=== PATIENT | female | born 1950 | race Caucasian/White ===

== ENCOUNTER → 2021-02-06 12:53 | Outpatient (CLI) | payer MEDICARE, SELFPAY | PROVIDERS: Visit Provider Physician Assistant | DX: R30.0 Dysuria (principal) | CPT/HCPCS: 87077; 87086; 87186 ==

== ENCOUNTER → 2021-03-29 16:00 | Outpatient (CLI) | payer MEDICARE, SELFPAY ==
--- NOTE | 2021-03-29 | DI.MRI.S_ITS ---
PROCEDURE: MR HEAD/BRAIN WO/W CON INDICATIONS: 70-year-old female with history of posterior fossa meningioma resection and CN 5 microvascular decompression 2014 TECHNIQUE: Noncontrast axial T1 spin echo, axial T2 fast spin echo, sagittal and axial FLAIR, coronal T2 fast spin echo, axial gradient echo, axial diffusion and ADC through the brain. After the administration of contrast, axial and coronal T1 spin echo with fat saturation through the brain. COMPARISON: Prior exam report 06/05/2019. Images not available. FINDINGS: Cerebrum, Cerebellum and Brainstem: Trace punctate susceptibility noted in the right cerebral pontine angle cistern again noted and consistent with postsurgical changes. The diffusion sequence is normal without evidence of acute infarct. No intracranial hemorrhage, mass lesion or midline shift. There is a normal cerebral and cerebellar volume present. White matter is unremarkable without evidence of edema. Basal cisterns and foramen magnum contain appropriate anatomy and vascular flow voids. No evidence of dural or leptomeningeal thickening. Ventricles: Appropriate in size and position. No hydrocephalus. Skull Base: The bony sella, pituitary gland and infundibulum are unremarkable. Clivus and craniovertebral relationships are appropriate. Visualized portions of the seventh and eighth cranial nerve complexes, cisternal components of both trigeminal nerves, and internal auditory canals are within normal limits. Scalp and Calvarium: Right retrosigmoid craniotomy noted. There is appropriate enhancement of the dural sinuses, including the right sigmoid sinus Paranasal Sinuses: Visualized sinuses are clear. Mastoids: Unremarkable as visualized. No mastoid effusion present. Orbits: Bilateral intraocular lens replacements noted. The orbits, globes and ocular muscles are otherwise unremarkable. IMPRESSION: 1. Postsurgical changes including right sided craniotomy are stable from the prior report. No evidence of recurrent or residual disease. Dictated by: Savage Davenport M.D. on 04/01/2021 at 12:00 Approved by: Savage Davenport M.D. on 04/01/2021 at 12:11
== END ==
PROVIDERS: Referring Provider Neurological Surgery; Visit Provider Neurological Surgery
DX: D32.0 Benign neoplasm of cerebral meninges (principal); Z98.890 Other specified postprocedural states
CPT/HCPCS: 70553; A9579

== ENCOUNTER → 2021-05-24 17:12 | Outpatient (CLI) | payer MEDICARE, SELFPAY ==
[2021-05-24 18:24] LABS: Add Manual Diff / Slide Review NO; Basophils Absolute Auto 0 /uL (0-100); Basophils Percent Auto 0.6 % (0-2); Eosinophils Absolute Auto 0 /uL (0-450); Eosinophils Percent Auto 0.3 % (2-4); Hematocrit 38.6 % (36-46); Hemoglobin 12.9 g/dL (12.0-16.0); Lymphocytes Absolute Auto 800 /uL (1100-4500); Lymphocytes Percent Auto 10.8 % (25-40); Mean Corpuscular HGB Conc 33.5 % (30-36); Mean Corpuscular Hemoglobin 33.7 PG (26-34); Mean Corpuscular Volume 100.5 fL (80-100); Monocytes Absolute Auto 400 /uL (0-900); Neutrophils Absolute Auto 5900 /uL (1500-7000); Neutrophils Percent Auto 82.3 % (50-75); Platelet Count 234 X10^3/uL (150-400); Red Blood Cell Count 3.84 X10^6/uL (4.0-5.2); Red Cell Distribution Width 14.2 % (11.6-14.8); White Blood Cell Count 7.2 X10^3/uL (4.5-11.0)
[2021-05-24 18:36] LABS: Alanine Aminotransferase 15 IU/L (<35); Albumin 4.3 g/dL (3.5-5.0); Albumin Globulin Ratio 1.5 (1.0-2.8); Alkaline Phosphatase 37 U/L (38-126); Aspartate Aminotransferase 30 IU/L (14-36); Bilirubin Total 0.6 mg/dL (0.2-1.3); Blood Urea Nitrogen 19 mg/dL (7-17); C-Reactive Protein Quant 0.6 mg/dL (<1.0); Calcium 9.4 mg/dL (8.4-10.2); Carbon Dioxide 31 mmol/L (22-32); Chloride 100 mmol/L (98-107); Creatine Kinase 54 U/L (30-135); Estimated Glomerular Filt Rate > 60.0 mL/min (>60); Globulin 2.8 g/dL (1.7-4.1); Glucose 99 mg/dL (80-110); HEMOLYSIS < 15 (0-50); Sodium 135 mmol/L (137-145); Total Protein 7.1 g/dL (6.3-8.2)
== END ==
PROVIDERS: Referring Provider Internal Medicine Rheumatology; Visit Provider Internal Medicine Rheumatology
DX: Z79.899 Other long term (current) drug therapy (principal); M31.7 Microscopic polyangiitis
CPT/HCPCS: 36415; 80053; 82550; 85025; 86140

== ENCOUNTER → 2022-04-07 12:11 | Outpatient (CLI) | payer MEDICARE, SELFPAY ==
[2022-04-07 12:42] LABS: Add Manual Diff / Slide Review NO; Basophils Absolute Auto 0 /uL (0-100); Basophils Percent Auto 0.7 % (0-2); Eosinophils Absolute Auto 100 /uL (0-450); Eosinophils Percent Auto 1.1 % (2-4); Hematocrit 39.6 % (36-46); Hemoglobin 13.4 g/dL (12.0-16.0); Lymphocytes Absolute Auto 700 /uL (1100-4500); Mean Corpuscular HGB Conc 33.8 % (30-36); Mean Corpuscular Hemoglobin 32.7 PG (26-34); Mean Corpuscular Volume 96.8 fL (80-100); Monocytes Absolute Auto 500 /uL (0-900); Monocytes Percent Auto 9.2 % (3-14); Neutrophils Absolute Auto 4600 /uL (1500-7000); Platelet Count 229 X10^3/uL (150-400); Red Cell Distribution Width 14.1 % (11.6-14.8); White Blood Cell Count 5.9 X10^3/uL (4.5-11.0)
[2022-04-07 12:48] LABS: Hemoglobin A1C% w Est Avg Glu 5.4 % (4.0-6.0)
[2022-04-07 12:56] LABS: Blood Urea Nitrogen 20 mg/dL (7-17); Carbon Dioxide 31 mmol/L (22-32); Chloride 100 mmol/L (98-107); Estimated Glomerular Filt Rate > 60 mL/min (>60); Glucose 114 mg/dL (80-110); HEMOLYSIS < 15 (0-50); Potassium 4.5 mmol/L (3.4-5.1); Sodium 138 mmol/L (137-145)
[2022-04-07 13:18] LABS: Appearance Urine UA CLEAR; Bilirubin Urine UA NEGATIVE (NEGATIVE); Color Urine UA YELLOW; Glucose Urine UA NEGATIVE (Negative); Ketones Urine UA NEGATIVE (NEGATIVE); Leukocyte Esterase Urine UA NEGATIVE (NEGATIVE); Nitrite Urine UA NEGATIVE (Negative); Occult Blood Urine UA 2+ (Negative); Protein Urine UA NEGATIVE (Negative); Specific Gravity Urine UA <=1.005 (1.000-1.035); Urobilinogen Urine UA 0.2 E.U./dL (0.2)
[2022-04-07 13:22] LABS: pH Urine UA 6.5 (4.5-8.0)
[2022-04-07 13:32] LABS: RBC Urine 1-5/HPF (0-5/HPF); Squamous Epithelial Cell Urine 0-1 /HPF (0-5/HPF); WBC Urine 0-1/HPF (0-5/HPF)
[2022-04-07 13:33] LABS: Bacteria Urine None Seen; Culture Indicated Urine Cult Not Indicated
== END ==
PROVIDERS: Referring Provider Orthopaedic Surgery; Visit Provider Orthopaedic Surgery
DX: Z01.818 Encounter for other preprocedural examination (principal); R73.9 Hyperglycemia, unspecified; M25.552 Pain in left hip; Z01.812 Encounter for preprocedural laboratory examination; N39.0 Urinary tract infection, site not specified
CPT/HCPCS: 36415; 80048; 81001; 83036; 85025; 93005; 93010

== ENCOUNTER → 2022-04-20 11:51 | Outpatient (CLI) | payer MEDICARE, SELFPAY ==
[2022-04-20 12:37] LABS: Add Manual Diff / Slide Review NO; Basophils Absolute Auto 0 /uL (0-100); Basophils Percent Auto 0.8 % (0-2); Eosinophils Absolute Auto 100 /uL (0-450); Hematocrit 36.3 % (36-46); Hemoglobin 12.3 g/dL (12.0-16.0); Lymphocytes Absolute Auto 800 /uL (1100-4500); Lymphocytes Percent Auto 14.6 % (25-40); Mean Corpuscular HGB Conc 33.9 % (30-36); Mean Corpuscular Hemoglobin 32.5 PG (26-34); Mean Corpuscular Volume 95.7 fL (80-100); Monocytes Absolute Auto 600 /uL (0-900); Monocytes Percent Auto 11.4 % (3-14); Neutrophils Absolute Auto 3800 /uL (1500-7000); Neutrophils Percent Auto 72.2 % (50-75); Platelet Count 207 X10^3/uL (150-400); Red Cell Distribution Width 13.2 % (11.6-14.8); White Blood Cell Count 5.3 X10^3/uL (4.5-11.0)
[2022-04-20 12:53] LABS: Erythrocyte Sedimentation Rate 32 MM/HR (0-20)
[2022-04-20 13:49] LABS: Alanine Aminotransferase 13 IU/L (<35); Albumin Globulin Ratio 1.4 (1.0-2.8); Alkaline Phosphatase 38 U/L (38-126); Aspartate Aminotransferase 23 IU/L (14-36); BUN Creatinine Ratio 32.5 (6-22); Bilirubin Total 0.5 mg/dL (0.2-1.3); Blood Urea Nitrogen 26 mg/dL (7-17); C-Reactive Protein Quant < 0.5 mg/dL (<1.0); Calcium 8.7 mg/dL (8.4-10.2); Carbon Dioxide 28 mmol/L (22-32); Chloride 104 mmol/L (98-107); Estimated Glomerular Filt Rate > 60 mL/min (>60); Globulin 2.9 g/dL (1.7-4.1); Glucose 106 mg/dL (80-110); HEMOLYSIS < 15 (0-50); Potassium 4.6 mmol/L (3.4-5.1); Sodium 139 mmol/L (137-145); Total Protein 6.9 g/dL (6.3-8.2)
== END ==
PROVIDERS: PCP Family Medicine; Referring Provider Internal Medicine Rheumatology; Visit Provider Internal Medicine Rheumatology
DX: M31.7 Microscopic polyangiitis (principal)
CPT/HCPCS: 36415; 80053; 85025; 85651; 86140

== ENCOUNTER 2022-05-30 09:18 | Day surgery (SDC) | payer MEDICARE, SELFPAY ==
[2022-05-22 08:53] VITALS: BMI 31.7
[2022-05-30] VITALS (12 sets, daily range): BP systolic 95–137; BP diastolic 34–78; PULSE 62–76; RESP 11–18; TEMP 35.1–37; O2SAT 95–100; BMI 31.7
--- NOTE | 2022-05-30 06:00 | DI.RAD.S_ITS ---
PROCEDURE: XR HIP W PEL IF DONE RT 2V INDICATIONS: TOTAL ANTERIOR HIP TECHNIQUE: 4 intraoperative fluoroscopic of the right hip acquired. COMPARISON: None. FINDINGS: Intraoperative fluoroscopic images shows right total hip arthroplasty in progress. IMPRESSION: Fluoro guidance was provided intraoperatively for right total hip arthroplasty. Dictated by: Geremias Barahona M.D. on 05/30/2022 at 16:44 Approved by: Geremias Barahona M.D. on 05/30/2022 at 16:45
[2022-05-30 09:49] LABS: COVID19 -Nasal RAPID Negative (Negative)
[2022-05-30] MEDS: LACTATED RINGERS 1,000 ML 42 ML IV ×2 (10:08→12:37)
[2022-05-30] MEDS: ACETAMINOPHEN 325 MG TABLET 975 MG PO (10:12)
[2022-05-30] MEDS: CELECOXIB 200 MG CAPSULE PO (10:13)
[2022-05-30] MEDS: VANCOMYCIN 1,000 MG/200 ML PIGGYBACK 200 MG IV (10:14)
--- NOTE | 2022-05-30 11:04 | PM.PREOP ---
Pre-operative Note COVID-19 COVID-19 status: Negative Interval Note History & Physical reviewed/Exam performed by Physician: Yes Changes to H&P: No
--- NOTE | 2022-05-30 11:04 | PM.OP.1 ---
Operative Date/Time/Diagnoses Date of procedure: 05/30/22 Time of procedure: 11:30 Pre-op diagnosis: SEVERE RIGHT HIP OA Post-op diagnosis: same Procedure & Clinicians Procedure: Right total hip arthroplasty anterior approach Same procedure as scheduled: Yes Indications: The patient has had progressively worsening right hip pain with radiographic changes consistent with arthritis. Non-operative management has failed and the patient has requested total hip replacement. The risks, benefits and alternatives to surgery were discussed with the patient prior to proceeding. Risks discussed included, but were not limited to, failure to relieve pain, leg length discrepancy, dislocation, stiffness, infection, nerve damage, deep venous thrombosis, pulmonary embolism, stroke, coma, heart attack, permanent paralysis and , as well as the potential need for eventual revision of the prosthetic. Surgeon: Yissel Hsieh [employer] Designer: Tigist Biggs Anesthesia Type: General and Spinal Operative Notes Findings: Severe right hip OA, acceptable bone, adequate stability Closure Type: primary Specimen(s): none sent Prosthetic devices, grafts, tissues, transplants, or devices: Hsieh and Nephew 50 R3, size 4 standard offset anthology, neutral poly liner, 32 x -3 Oxinium head Estimated Blood Loss (mL): 250 Blood products transfused: none Procedure in detail: The patient was brought to the operating room. Patient was carefully positioned in the supine position. Time-out was performed and antibiotics were given. Anesthesia was induced. She was positioned in the on the table in order to allow hyperextension of the hip. The right lower extremity was prepped and draped in a standard sterile fashion. An anterior right hip incision was made 1 fingerbreadth lateral to the anterior superior iliac spine and extended distally towards the greater trochanter. Dissection was carried out through skin and subcutaneous tissues. Superficial hemostasis was achieved. The fascia over the tensor fascia jaycob was defined and incised with a knife. Two Allis clamps were used to grasp the fascia. Tensor fascia jaycob was retracted laterally. A gelpi retractor was placed. Dissection was carried out down along the neck. The circumflex vessels were carefully identified and cauterized with the Aqua Mantis. There was good visualization of the femoral neck. A Cobra was placed superior to the neck and the gluteus fibers were carefully stripped from that superior aspect of the capsule. A 2nd retractor was placed along the inferior aspect of the neck. The rectus insertion along the capsule was partially released. A 3rd retractor that was then gently placed over the rim of the acetabulum under the rectus. Capsule was carefully incised and released from the intertrochanteric line circumferentially superior to the mid sagittal line and inferiorly to the mid sagittal line until the lesser trochanter was palpable. A tag stitch was placed both in the superior and inferior limb of the capsular insertion. Along the acetabulum capsule was also released up to the mid sagittal 12:00 position. A portion of the labrum was resected. A saw was used to perform an osteotomy at the level of the intertrochanteric line and the junction of the superior femoral neck leaving approximately 1 finger breath of residual inferior neck above the lesser trochanter. A 2nd cut was made along the femoral neck at the base of the head and a napkin ring of neck was removed. Corkscrew was placed in the femoral head and the head was removed without difficulty. Retractors were then repositioned around the acetabulum. Residual labrum was resected and additional osteophytes were removed. A reamer that was 4 mm below the templated size was placed by hand in the acetabulum and it was reamed to centralize the acetabulum. It was then reamed up to 2 under the templated size and fluoroscopy was brought in to confirm the position of the reaming and depth of reaming. I reamed 1 under the anticipated size. A trial cup was placed and noted that it was appropriately sized and fluoroscopy confirmed position and depth. The component was open and inserted without difficulty fluoroscopic imaging was used to confirm that the cup had been adequately seated and was well positioned. It was further stabilized with a single screw. Neutral poly liner was placed. The cup was tested and noted to be stable. Attention was then directed to the femur. The femur was gently hyperextended additional capsular release was performed as needed in order to allow adequate visualization of the proximal femur with elevation of the femur. Patient was placed in a hyperextended slightly adducted position with maximum external rotation. Box osteotome was used to check for any residual neck as well as sclerotic bone along the trochanter. Zeigler pepper was placed in the femur. Additional broaching was performed. Canal finder was used to determine the alignment of the canal and position. Size 1 broach was placed. The canal was then appropriately broached up to the templated size as long as there was adequate stability of the broach and serial advancement of the broach without excessive impingement. Specific attention was directed at avoiding varus attempting to direct the distal aspect of the broach more anteriorly and avoiding excessive anteversion. Trial reduction showed acceptable range of motion, good stability, no posterior impingement, confucianist of leg length and appropriate lateral shuck. I also hyperflexed the hip and checked that there was no impingement anteriorly and there was good stability with flexion, adduction and internal rotation. Marcaine and Exparel were injected. The stem was placed without difficulty. Repeat trial reduction and x-ray showed acceptable overall position, length, and no evidence of the femoral fracture. Final head was placed. Wound was meticulously irrigated with normal saline. The hip was reduced and additional Exparel and Marcaine were injected. The capsule was closed with interrupted nonabsorbable sutures. The fascia of the tensor was closed with interrupted and running Vicryl. No drain was placed. Any tensor fascia jaycob muscle that appeared to be contused or injured which was a minimal amount was carefully resected. Capsule around the tensor was injected with Exparel and Marcaine. The skin was closed with barbed stitches for the subcutaneous tissue and skin. We also used surgical glue. The wound was dressed sterilely. Brief Betadine soak was also used and was meticulously irrigated with normal saline. Patient was transferred to recovery room in satisfactory condition. Complications: none Post-operative Condition: stable Disposition: Acute Care Plan for aftercare: The patient will be maintained on a standard total hip replacement protocol with weight bearing as tolerated and anterior hip precautions. The patient will receive Aspirin and sequential compression devices for DVT prophylaxis. The patient will be discharged home when safe for the home environment.
[2022-05-30] MEDS: CEFAZOLIN 2 GM/100 ML PREMIX 100 ML IV ×2 (11:45→20:20)
[2022-05-30] MEDS: TRANEXAMIC ACID 1,000 MG VIAL 1000 MG INJ ×2 (12:10→14:13)
--- NOTE | 2022-05-30 12:32 | SUR.OPER ---
Patient supine on padded Warren table, one arm on padded arm board at <90, other arm padded and secured with tape across patient's chest, both legs secured in padded traction boots and positioned per surgeon, padded post at patient's groin, pressure points checked and padded.
[2022-05-30] MEDS: SODIUM CHLORIDE IRRIG SOLUTION 250 ML, POVIDONE-IODINE SPONGE STICKS 1 APPLIC IRR (13:52)
[2022-05-30] MEDS: BUPIVACAINE LIPOSOME 266 MG/20 ML VIAL INJ (14:04)
[2022-05-30] MEDS: BUPIVACAINE 0.25% (PF) VIAL 60 ML INJ (14:04)
[2022-05-30] MEDS: EPINEPHrine 1 MG/ML 0.3 MG IM (14:04)
--- NOTE | 2022-05-30 14:30 | DI.RAD.S_ITS ---
PROCEDURE: XR HIP W PEL IF DONE RT 2V INDICATIONS: RIGHT TOTAL HIP TECHNIQUE: AP pelvis and lateral view of the right hip acquired. COMPARISON: [facility], [place], XR HIP W PEL IF DONE RT 2V, 05/30/2022, 13:10. FINDINGS: Bones: Patient is status post right hip arthroplasty, with hardware components in expected positions. The hip joint appears congruent. The visualized bony structures appear intact. Soft tissues: Overlying postoperative changes are noted. No suspicious soft tissue densities. IMPRESSION: Expected appearance status post right hip arthroplasty. Dictated by: Sofiya Mendez M.D. on 05/30/2022 at 15:11 Approved by: Sofiya Mendez M.D. on 05/30/2022 at 15:11
--- NOTE | 2022-05-30 14:45 | SUR.PHASEI ---
Report called to Laura Basurto
--- NOTE | 2022-05-30 15:08 | SUR.PHASEI ---
Patient transferred to the floor with her belongings bag and brown personal bag. VS stable. Report given to Laura Basurto Right hip dressing CDI. IV saline locked. Patient moving bilateral feet independently.
[2022-05-30] MEDS: LACTATED RINGERS 1,000 ML 125 ML IV (15:50)
[2022-05-30] MEDS: SODIUM CHLORIDE 0.9% FLUSH 10 ML IV ×2 (15:52→20:22)
[2022-05-30] MEDS: OXYCODONE IR 5 MG TABLET PO (16:16)
[2022-05-30] MEDS: IBUPROFEN 600 MG TABLET PO (16:16)
--- NOTE | 2022-05-30 17:18 | PT.IIE ---
Current Diagnoses Unilateral primary osteoarthritis, right hip (05/30/22) Surgery Performed Operation Date: 05/30/22 11:15 Actual Procedures p Total Hip Arthroplasty/Anterior Approach(Right) - Yissel Hsieh MD Surgical History (Last Updated 05/22/22 @ 09:29 by Emili Burris, RN) History of 2 sections History of biopsy (04/2022) History of hysterectomy History of lumpectomy of right breast (2011) Hx of bilateral cataract extraction Hx of craniotomy (~2015) Hx of LASIK Hx of tonsillectomy Medical History (Last Updated 05/22/22 @ 09:29 by Emili Burris, ELIA) Breast cancer, right (2011) Depression Diverticulosis History of tumor HTN (hypertension) Melanoma Meningioma (~2015) Microscopic polyangiitis (2008) No active medical problems Thin skin Vasculitis Physical Therapy Inpatient Evaluation/Re-Eval M1 PT/OT-IP Prior Functional Status Start: 05/30/22 17:36 Freq: NEEDED Status: Active Protocol: Document 05/30/22 17:18 DLKang (Rec: 05/30/22 17:53 DL [id number]) Medical Review Prior Functional Status Medical History Reviewed Yes Diet/Fluid Consistency Regular Communication WFL, glasses Mobility and Gait Independent without device Activities of Daily Living and IADL's Independent Social History Household Members spouse Living Arrangements Apartment/Condo Number of Floors (Floors) Two Floors Number of Stairs To Enter/Railing? 20 steps up to bedroom with rail, 3 steps to enter house without rails (holds wall) Home Environment Standard Height Toilet Home Equipment Front Wheel Walker,Bedside Commode Additional Social History Comment she plans to stay on the first floor of her home with bedside commode. They also have walking sticks. M2 PT-IP Current Condition Start: 05/30/22 17:36 Freq: NEEDED Status: Active Protocol: Document 05/30/22 17:18 DLM (Rec: 05/30/22 17:53 DL [id number]) Physical Therapy Current Condition Current Condition Evaluation Date 05/30/22 Treatment Diagnosis right anterior WILBERT, impaired mobility/gait Onset Date 05/30/22 M3 PT-IP Subjective Start: 05/30/22 17:36 Freq: NEEDED Status: Active Protocol: Document 05/30/22 17:18 DLM (Rec: 05/30/22 17:53 [facility] [id number]) Subjective Physical Therapy Visit Type Type Initial Evaluation Visit Start Time 16:18 Visit Stop Time 17:18 Total Visit Minutes 60 Number of CRANBERRY GROWER Visits 0 Physical Therapy Visit Comments Patient Comments She feels like she needs to move a lot to manage her pain. She wants to go home today. She has out-pt PT scheduled post-op. Patient Goals Discharge home with Spouse to help M4 PT-IP Mobility and Gait Start: 05/30/22 17:36 Freq: NEEDED Status: Active Protocol: Document 05/30/22 17:18 DL (Rec: 05/30/22 17:53 [facility] [id number]) PT-Bed Mobility Assessment Rolling Type of Rolling Bilateral Level of Assist Independent Supine to Sit Supine to Sit Independent Sit to Supine Sit to Supine Independent Scooting Scooting to Edge of Bed Independent Scooting Up and Down in Bed Independent PT-Transfer Assessment Sit to and From Stand Sit to and from Stand Standby Assistance,Use of Upper Extremities Equipment Transfer Assistive Device Gait Belt,Front Wheeled Walker Transfers Transfer Destination Bed,Chair,Bedside Commode Transfer Technique Stand Step Pivot Transfer Ability Level of Assist Standby Assistance,Use of Upper Extremities Comments Mobility Comments She needs verbal cues and education during sit -stand to push up with UE's and reach back with UE's. She needs reminders to keep the FWW with her all the time and not leave it behind. Pt able to urinate in bedside commode this visit (nursing notified). She sat up in the recliner. She requested back to bed to manage her pain. After mobility pt became nauseated and clammy. Seated BP 95/44. Her nurse was notified. Gait Assessment Gait Gait Assistance Required: Standby Assistance Distance (Feet) 150 Able to Maintain Weight Bearing Status Yes During Gait Assistive Devices Assistive Device Gait Belt,Front Wheeled Walker Gait Deviations General Gait Pattern Antalgic,Decreased Stride Length Factors Limiting Gait Function Factors Limiting Gait Function Decreased Activity Tolerance, Decreased Strength,Limited Range of Motion,Pain,Poor Balance Comments Gait Comments Educated pt in use of FWW and sequencing of gait. No reports of nausea or light-headedness during gait. Stair Climbing Assessment Evaluation Level of Assist On Stairs Minimal Assistance,1 Person Assistance Devices Stair Climbing Assistive Devices Right Railing Technique/Endurance Stair Climbing Direction Ascend and Descend Stair Climbing Technique Step to Step Number of Steps Climbed 1 Query Text: Stair Climbing Set # Repetitions (reps) 2 Comments Stair Climbing Comments used end of bed to mimic her wall at home and then handheld assist on the opposite side, her reports he can help her at home since she has no rails on the steps into the house PT-Balance Assessment Sitting Balance and Reactions Static Sitting Balance Ability Normal Dynamic Sitting Balance Ability Normal Standing Balance and Reactions Static Standing Balance Ability Good Dynamic Standing Balance Ability Good Device Used FWW M5 PT-IP Objective Assessments Start: 05/30/22 17:36 Freq: NEEDED Status: Active Protocol: Document 05/30/22 17:18 [facility] (Rec: 05/30/22 17:53 [facility] [id number]) Orientation Orientation/Cognition Level of Alertness Alert Orientation Name,Age,Birthday,Month,Date, Year,Day of Week,Place, Situation Language Function Ability No Deficits Noted Safety Awareness Understands Safety Issues Memory Description No Deficits Noted Gross Range of Motion Upper Extremity ROM Assessment Within Functional Limits Lower Extremity ROM Assessment Right Impaired Impairments anterior hip precautions and hip pain limit ROM Strength Upper Extremity Strength Assessment Within Functional Limits Lower Extremity Strength Assessment Right Impaired Hip hip flex 3-/5 Knee knee 4-/5 Ankle DF 5/5 Comments Strength Comments pain right hip limits functional strength Coordination Assessment Gross Coordination Gross Coordination WNL Sensation Assessment Sensation Gross Sensation WNL Muscle Tone Muscle Tone WNL Yes M6 PT-IP Treatment Start: 05/30/22 17:36 Freq: NEEDED Status: Active Protocol: Document 05/30/22 17:18 DL (Rec: 05/30/22 17:53 [facility] [id number]) Physical Therapy Treatment Exercises Exercises Ankle Pumps,Gluteal Sets,Quad Sets,Heel Slides Education Education Provided Precautions,Weight Bearing Status,Post-Op Packet,Safety Other Treatments Other Treatment Performed educated pt and her spouse in post-op precautions for WILBERT, reviewed written post-op packet, discussed home safety issues and answered their questions M7 PT-IP Assessment and Plan Start: 05/30/22 17:36 Freq: NEEDED Status: Active Protocol: Document 05/30/22 17:18 DL (Rec: 05/30/22 17:53 [facility] [id number]) PT Summary Assessment and Plan Potential Rehabilitation Potential Good Status of Condition at Evaluation Evolving Summary Impairments Pain,ROM,Strength,Balance,Bed Mobility,Transfers,Gait, Activity Tolerance Assessment Summary Devi is alert and eager to go home after surgery. She is moving frequently and changing position. She reports the pain makes her feel like she needs to move often. She rates her pain as 3/10 in right hip area. She tolerated gait with the FWW well in the lopez. She was able to go up and down steps with min assist. She developed nausea after activity and sat in the recliner with feet elevated to manage her symptoms. Noted low BP at that time. With questioning pt admits to also feeling cold/clammy. Pt returned to supine to rest. Her nurse was notified of her low BP. Her mobility is safe for discharge home today but concerned her low BP needs further monitoring. Defer further decisions to the medical team. Goals Bed Mobility Goal Independent Transfer Goal Independent,Front Wheeled Walker Gait Goal Independent,Front Wheel Walker Gait Distance 150 feet Other Goals Min assist up/down 3 steps with min assist Days to Meet Goals 1 Frequency of Treatment Frequency Of Treatment Twice a Day Treatment Plan Physical Therapy Treatment Plan Bed Mobility Training,Transfer Training,Gait Training, Therapeutic Exercise,Balance Retraining,Post Op Education, Discharge Planning,Hot or Cold Pack Other Recommendations and Next Treatment her mobility/gait is safe to Focus discharge home Precautions Anterior Hip Precautions No Hip Extension,No Hip External Rotation Weight Bearing Status Weight Bearing Status Weight Bear as Tolerated Recommendations To Nursing Amount of Assist Needed Standby Assistance Discharge Recommendations PT Discharge Recommendations Home with Assistance, Outpatient PT Other Discharge Recommendations she has a supportive spouse, she has out-pt PT scheduled Transportation Needs at Discharge Private Vehicle
[2022-05-30] MEDS: ACETAMINOPHEN 325 MG TABLET 650 MG PO (17:58)
[2022-05-30] MEDS: ASPIRIN EC 81 MG TABLET PO (20:22)
[2022-05-30] MEDS: ATORVASTATIN 20 MG TABLET 10 MG PO (20:22)
[2022-05-30] MEDS: DOCUSATE 100 MG CAPSULE PO (20:22)
[2022-05-30] MEDS: ZOLPIDEM 5 MG TABLET 10 MG PO (20:22)
[2022-05-31] MEDS: ACETAMINOPHEN 325 MG TABLET 650 MG PO ×2 (00:21→06:15)
[2022-05-31] MEDS: IBUPROFEN 400 MG TABLET PO ×3 (00:22→11:05)
[2022-05-31] MEDS: LACTATED RINGERS 1,000 ML 125 ML IV (00:23)
[2022-05-31 00:46] VITALS: BP 123/52; PULSE 64; RESP 18; TEMP 36.5; O2SAT 98
[2022-05-31] MEDS: CEFAZOLIN 2 GM/100 ML PREMIX 100 ML IV (04:12)
[2022-05-31 04:14] VITALS: BP 111/51; PULSE 67; RESP 18; TEMP 36.6; O2SAT 98
[2022-05-31 06:30] LABS: Hematocrit 31.9 % (36-46); Hemoglobin 10.7 g/dL (12.0-16.0)
[2022-05-31 07:30] VITALS: BP 148/53; PULSE 72; RESP 16; TEMP 36.9; O2SAT 99
[2022-05-31 08:17] VITALS: BP 148/53
[2022-05-31] MEDS: ASPIRIN EC 81 MG TABLET PO (08:17)
[2022-05-31] MEDS: lisinopriL 5 MG TABLET PO (08:17)
[2022-05-31 08:18] VITALS: BP 148/53
[2022-05-31] MEDS: VENLAFAXINE ER 75 MG CAP PO (08:18)
[2022-05-31] MEDS: DOCUSATE 100 MG CAPSULE PO (08:18)
[2022-05-31] MEDS: METOPROLOL ER 50 MG TABLET PO (08:18)
[2022-05-31] MEDS: SODIUM CHLORIDE 0.9% FLUSH 10 ML IV (08:20)
--- NOTE | 2022-05-31 08:21 | P.DS_ITS ---
History of Present Illness History of Present Illness Date Patient Seen: 05/31/22 Time Patient Seen: 08:22 Chief complaint: R total Hip Arthroplasty/Anterior approach *OPB* Narrative: Patient is complaining of [id number] right hip pain. She has not been taking oxycodone due to postop nausea and vomiting, which is resolving. She denies any lightheadedness or dizziness. Overall she is feeling well, and would like to be discharged home today. Discharge Providers Provider Discharge Date: 05/31/22 Primary care physician: Refugio Baker MD Consults: 05/30/22 06:00 Consult to Anesthesiology Routine Comment: Consulting Provider: Anesthesiologist Reason for consultation: Regional block for post operative pain control 05/30/22 14:53 Consult to Discharge Planning Routine Comment: Consult to Physical Therapy Evaluate & Treat Comment: Physician Instructions: post op WILBERT protocol Consult to Respiratory Therapy Evaluate & Treat Comment: Physician Instructions: Evaluate and treat Discharge provider: Simona Lo PA-C Summary Hospital Course Discharge Diagnosis: Severe right hip OA -mild postop hemorrhagic anemia, asymptomatic Hospital Course: Operative Date/Time/Diagnoses Date of procedure: 05/30/22 Time of procedure: 11:30 Procedure & Clinicians Procedure: Right total hip arthroplasty anterior approach Same procedure as scheduled: Yes Indications: The patient has had progressively worsening right hip pain with radiographic changes consistent with arthritis. Non-operative management has failed and the patient has requested total hip replacement. The risks, benefits and alternatives to surgery were discussed with the patient prior to proceeding. Risks discussed included, but were not limited to, failure to relieve pain, leg length discrepancy, dislocation, stiffness, infection, nerve damage, deep venous thrombosis, pulmonary embolism, stroke, coma, heart attack, permanent paralysis and , as well as the potential need for eventual revision of the prosthetic. Surgeon: Yissel Hsieh Game Room Attendant: Tigist Biggs Anesthesia Type: General and Spinal Operative Notes Findings: Severe right hip OA, acceptable bone, adequate stability Closure Type: primary Specimen(s): none sent Prosthetic devices, grafts, tissues, transplants, or devices: Hsieh and Nephew 50 R3, size 4 standard offset anthology, neutral poly liner, 32 x -3 Oxinium head Estimated Blood Loss (mL): 250 Blood products transfused: none Status at Discharge Cognitive/behavioral status at discharge: oriented Functional status at discharge: uses cane/walker Overall status at discharge: patient is progressing back to baseline Exam Vital Signs (past 8 hours): - 05/31/22 00:46 05/31/22 04:14 05/31/22 08:17 Temperature 97.7 F 97.8 F Pulse Rate 64 67 Respiratory Rate 18 18 Blood Pressure 123/52 L 111/51 L 148/53 H Pulse Oximetry 98 98 Oxygen Flow Rate 0 0 05/31/22 08:18 Temperature Pulse Rate Respiratory Rate Blood Pressure 148/53 H Pulse Oximetry Oxygen Flow Rate Oxygen Delivery Method Room Air Oxygen Flow Rate 0 Narrative Exam Narrative: Pleasant 71-year-old female, resting comfortably in her chair, no acute distress. Bilateral lower extremity: Motor functions are grossly intact, sensation is grossly intact to light touch, calves are soft and nontender palpation. Objective Labs Result Diagrams: 05/31/22 06:01 Labs: Laboratory Results - last 24 hr 05/30/22 05/31/22 09:16 06:01 Hgb 10.7 L Hct 31.9 L SARS-CoV-2 (PCR) Negative [facility] Medical History Breast cancer, right (2011) Depression Diverticulosis History of tumor HTN (hypertension) Melanoma Meningioma (~2015) Microscopic polyangiitis (2008) No active medical problems Thin skin Vasculitis Surgical History History of 2 sections History of biopsy (04/2022) History of hysterectomy History of lumpectomy of right breast (2011) Hx of bilateral cataract extraction Hx of craniotomy (~2015) Hx of LASIK Hx of tonsillectomy Social History household members: spouse Smoking Status: Former smoker alcohol intake: current Discharge Assessment & Plan Assessment and Plan Assessment: -stable status post right total hip arthroplasty via the anterior approach -mild postoperative hemorrhagic anemia, asymptomatic -postop nausea and vomiting, resolved Plan of Treatment: -mobilize with PT. Weightbearing as tolerated with front wheel walker. Maintain anterior hip precautions x6 weeks -continue with multimodal pain management. We will try tramadol as needed for moderate to severe pain. -aspirin 81 mg b.i.d. x6 weeks for DVT prophylaxis -DC home today once cleared by PT Discharge Plan Discharge Plan Patient Disposition: Home Discharge orders & Medications Discharge Orders: Discharge (Order); Ordered 05/31/22 Ordered By: Simona Lo Prescriptions: New acetaminophen 500 mg capsule 500 mg PO Q4H MDD Max 3000 mg per day PRN (Reason: fever or pain) Qty: 90 0RF aspirin 81 mg Tablet,Delayed Release (Dr/Ec) 81 mg PO BID 42 Days Qty: 84 0RF Rx Instructions: Prevent blood clots docusate sodium 100 mg Capsule 100 mg PO BID PRN (Reason: Constipation from narcotic pain meds) Qty: 14 0RF ibuprofen 400 mg Tablet 400 mg PO Q6HR MDD Max 2400 mg per day PRN (Reason: Pain/inflammation) Qty: 90 0RF tramadol 50 mg Tablet 50 mg PO QID PRN (Reason: Pain, Moderate (4-6)) Qty: 20 0RF Continued lisinopril 5 mg tablet 5 mg PO DAILY zolpidem [Ambien] 10 mg tablet 10 mg PO BEDTIME venlafaxine [Effexor XR] 75 mg capsule,extended release 24hr 75 mg PO DAILY azathioprine 100 mg tablet 50 mg PO DAILY nitrofurantoin macrocrystal [Macrodantin] 50 mg Capsule 50 mg PO Q OTHER DAY Rx Instructions: must administer with a meal/food metoprolol succinate 50 mg Capsule,Sprinkle,Er 24hr 50 mg PO DAILY atorvastatin 10 mg Tablet 10 mg PO Q OTHER DAY Discontinued ibuprofen 600 mg Tablet 600 mg PO DAILY PRN (Reason: Pain) Follow up/Referrals: Refugio Baker MD [Primary Care Provider] - Yissel Hsieh MD [Physician] - As previously scheduled (Follow up w/ Adolph Harmon PA-C, on 06/14/2022 @ 2:00 pm at [facility] office in [place] .) Diet/Activity/Treatments Diet: Diet as Tolerated Activity: WBAT to RLE. Anterior hip precautions. Cold/Heat Therapy: Ice to hip as needed for pain. Other treatments: Medications: -Aspirin 81mg twice daily x6 weeks to prevent blood clots. -OTC Tylenol 500 mg 1 tablet every 4 hours as needed for pain/fever. Max 6 tablets per day. -Ibuprofen 400 mg 1 tablet every 4 hours as needed for pain/inflammation. Max 2,400 mg per day. -Tramadol 50 mg take 1-2 tablets every 4 hours as needed for moderate-severe pain (narcotic pain medication). -As needed medications: -Ducolax and /or MiraLax as needed for constipation from narcotic pain medications. -Pepcid AC as needed for stomach upset (usually from aspirin or ibuprofen). Dressing/Wound care: -Keep Aquacell dressing in place until postoperative follow-up office visit. -Keep Jerome dressing in place until postoperative follow-up office visit. The Jerome battery/pump should last for 7 days from surgery. Once the pump stops, please cut off hose at base of dressing and cover with a bandaid/part of a dressing from Jerome package. The monitor can be thrown away and recycle the batteries. Leave the remaining dressing in place. -Jerome info: The Jerome dressing provides suction known as negative pressure wound therapy, which draws out excess fluid from the wound and protects the incision. It also helps to prevent bacteria from entering the wound or incision. -Okay to shower. Keep wound out of direct water stream. No soaking or submerging until all the scabs fall off (approximately 6 weeks). -No lotions, ointments, or scar creams directly to the incision until the wound is healed (4-6 weeks), -Please call the office if dressing becomes wet, soiled, or saturated. Activities: -Maintain anterior hip precautions x6 weeks. -Weight-bearing as tolerated. Use front wheeled walker, and progress to cane when safe. -Continue with home exercises as directed by your physical therapist. -Elevate ?toes above the nose if you have significant swelling in your lower l eg. (A wedge pillow is easiest.) -Ice your incision as needed for pain/inflammation/swelling. Protect your skin with a folded pillowcase. Follow-up: -Follow-up with your surgeon or PA in the office in 10-14 days after surgery. -Follow-up with your surgeon 6 weeks postoperatively. Call the office if you have chest pain, shortness of breath, significant swelling that will not resolve with elevating, fever over 101?, significantly worsening pain, or are concerned you might need to go to the Emergency Room. [facility]: [phone] Skin/Wound/Dressing Care Report to your healthcare provider any signs of infection, such as:: chills, fever, night sweats, unusual drainage and unusual redness Dressing: May shower. Leave Aquacel dressing in place until follow up appointment. No bathing or otherwise soaking incision. Visit Report/Discharge Packet Instructions: DI for Hip Replacement Stand Alone Forms: Surgery Discharge Discharge Data Primary Care Provider: Refugio Baker Attending Provider: Yissel Hsieh VTE Deep Vein Thrombosis/Pulmonary Embolism Present on Admission: No
--- NOTE | 2022-05-31 09:38 | PT.IPTN ---
Current Diagnoses Unilateral primary osteoarthritis, right hip (05/30/22) Surgery Performed Operation Date: 05/30/22 11:15 Actual Procedures p Total Hip Arthroplasty/Anterior Approach(Right) - Yissel Hsieh MD Physical Therapy Treatment Note M2 PT-IP Current Condition Start: 05/30/22 17:36 Freq: NEEDED Status: Active Protocol: Document 05/30/22 17:18 DLM (Rec: 05/30/22 17:53 DLM [id number]) Physical Therapy Current Condition Current Condition Evaluation Date 05/30/22 Treatment Diagnosis right anterior WILBERT, impaired mobility/gait Onset Date 05/30/22 M3 PT-IP Subjective Start: 05/30/22 17:36 Freq: NEEDED Status: Active Protocol: Document 05/31/22 09:03 KS (Rec: 05/31/22 11:06 KS [id number]) Subjective Physical Therapy Visit Type Type Treatment Note Visit Start Time 09:03 Visit Stop Time 09:38 Total Visit Minutes 35 Number of MILITARY ANALYST Visits 1 Physical Therapy Visit Comments Patient Comments Eager to return home Patient Goals Discharge home with Spouse to help M4 PT-IP Mobility and Gait Start: 05/30/22 17:36 Freq: NEEDED Status: Active Protocol: Document 05/31/22 09:03 KS (Rec: 05/31/22 11:06 KS [id number]) PT-Bed Mobility Assessment Rolling Type of Rolling Bilateral Level of Assist Independent Supine to Sit Supine to Sit Independent Sit to Supine Sit to Supine Independent Scooting Scooting to Edge of Bed Independent Scooting Up and Down in Bed Independent PT-Transfer Assessment Sit to and From Stand Sit to and from Stand Standby Assistance,Use of Upper Extremities Equipment Transfer Assistive Device Gait Belt,Front Wheeled Walker Transfers Transfer Destination Bed,Toilet Transfer Technique Pt ambulated w/ FWW Transfer Ability Level of Assist Standby Assistance,Use of Upper Extremities Comments Mobility Comments Pt in bed upon arrival and eager to return home. Offers that she has been up several times this AM w/o dizziness as compared to yesterday. BP was stable w/ positional changes and pt w/o symptoms. Pt able to perform bed mobility independently and transferred w/ FWW SBA. She ambulated ~100 ft SBA and used bathroom independenetly. Reveiwed precautions and exercise. PT has OPPT set up to begin next week. Gait Assessment Gait Gait Assistance Required: Standby Assistance Distance (Feet) 100 Able to Maintain Weight Bearing Status Yes During Gait Assistive Devices Assistive Device Gait Belt,Front Wheeled Walker Gait Deviations General Gait Pattern Antalgic,Decreased Stride Length Factors Limiting Gait Function Factors Limiting Gait Function Decreased Activity Tolerance, Decreased Strength,Limited Range of Motion,Pain,Poor Balance Comments Gait Comments Educated pt in use of FWW and sequencing of gait. No reports of nausea or light-headedness during gait. Min reminders to use FWW at all times. Stair Climbing Assessment Comments Stair Climbing Comments Did not re-assess. Pt feels comfortable to complete at home. PT-Balance Assessment Sitting Balance and Reactions Static Sitting Balance Ability Normal Dynamic Sitting Balance Ability Normal Standing Balance and Reactions Static Standing Balance Ability Good Dynamic Standing Balance Ability Good Device Used FWW M5 PT-IP Objective Assessments Start: 05/30/22 17:36 Freq: NEEDED Status: Active Protocol: Document 05/30/22 17:18 DL (Rec: 05/30/22 17:53 [facility] [id number]) Orientation Orientation/Cognition Level of Alertness Alert Orientation Name,Age,Birthday,Month,Date, Year,Day of Week,Place, Situation Language Function Ability No Deficits Noted Safety Awareness Understands Safety Issues Memory Description No Deficits Noted Gross Range of Motion Upper Extremity ROM Assessment Within Functional Limits Lower Extremity ROM Assessment Right Impaired Impairments anterior hip precautions and hip pain limit ROM Strength Upper Extremity Strength Assessment Within Functional Limits Lower Extremity Strength Assessment Right Impaired Hip hip flex 3-/5 Knee knee 4-/5 Ankle DF 5/5 Comments Strength Comments pain right hip limits functional strength Coordination Assessment Gross Coordination Gross Coordination WNL Sensation Assessment Sensation Gross Sensation WNL Muscle Tone Muscle Tone WNL Yes M6 PT-IP Treatment Start: 05/30/22 17:36 Freq: NEEDED Status: Active Protocol: Document 05/31/22 09:03 KS (Rec: 05/31/22 11:06 RI [id number]) Physical Therapy Treatment Exercises Exercises Ankle Pumps,Gluteal Sets,Quad Sets,Heel Slides Education Education Provided Precautions,Weight Bearing Status,Post-Op Packet,Safety M7 PT-IP Assessment and Plan Start: 05/30/22 17:36 Freq: NEEDED Status: Active Protocol: Document 05/31/22 09:03 KS (Rec: 05/31/22 11:06 RI [id number]) PT Summary Assessment and Plan Potential Rehabilitation Potential Good Summary Impairments Pain,ROM,Strength,Balance,Bed Mobility,Transfers,Gait, Activity Tolerance Progress Towards Goals Progressing Toward Goals Assessment Summary Pt showing good improvements w / mobility and feels ready to return home. She was able to perform bed mobility independently and transfer and ambulate w/ FWW SBA. Confirms will be able to assist as needed and she feels capable to complete 3 steps leading into home. Good awareness and adherence to hip precautions and has FWW and BSC at home. She will benefit from OPPT to improve strength and stability. Goals Bed Mobility Goal Independent Transfer Goal Independent,Front Wheeled Walker Gait Goal Independent,Front Wheel Walker Gait Distance 150 feet Other Goals Min assist up/down 3 steps with min assist Days to Meet Goals 1 Frequency of Treatment Frequency Of Treatment Twice a Day Treatment Plan Physical Therapy Treatment Plan Bed Mobility Training,Transfer Training,Gait Training, Therapeutic Exercise,Balance Retraining,Post Op Education, Discharge Planning,Hot or Cold Pack Other Recommendations and Next Treatment her mobility/gait is safe to Focus discharge home Precautions Anterior Hip Precautions No Hip Extension,No Hip External Rotation Weight Bearing Status Weight Bearing Status Weight Bear as Tolerated Recommendations To Nursing Amount of Assist Needed Standby Assistance Discharge Recommendations PT Discharge Recommendations Home with Assistance, Outpatient PT Other Discharge Recommendations she has a supportive spouse, she has out-pt PT scheduled Transportation Needs at Discharge Private Vehicle
[2022-05-31] MEDS: TRAMADOL 50 MG TABLET PO (09:42)
--- NOTE | 2022-05-31 11:38 | PC.NURSE ---
Pt is dressed and ready for discharge home with Spouse. IV has been removed. Went over d/c instructions with Pt and Spouse-discussed d/c meds, time of last dose, reviewed stroke education, reminded Pt to drink plenty of fluids to prevent constipation or dehydration, reviewed dosing limits for acetaminophen and ibuprofen. Discussed s/s of infection and follow up appointment. Pt and Spouse denied further questions and Pt was taken out via w/c by [employer] to POV with Spouse and all belongings.
== END 2022-05-31 11:44 | disposition home or self-care (01) ==
LOC: OR 09:19 → AC 09:19
PROVIDERS: PCP Family Medicine; Referring Provider Orthopaedic Surgery; Visit Provider Orthopaedic Surgery
PROC: (CPT 27130; principal; 2022-05-30 11:15)
DX: M16.11 Unilateral primary osteoarthritis, right hip (principal); I10 Essential (primary) hypertension
CPT/HCPCS: 27130; 36415; 73502; 76000; 85014; 85018; 87635; 97116; 97162; 97530; C1776; C9803; C9290; J0171; J0690; J2250; J3010; J3490

== ENCOUNTER → 2023-01-06 11:46 | Outpatient (CLI) | payer MEDICARE, SELFPAY ==
[2022-05-30 15:45] VITALS: BMI 31.7
--- NOTE | 2023-01-06 11:51 | DI.MRI.S_ITS ---
PROCEDURE: MR LUMBAR SPINE WO CON INDICATIONS: Spondylosis without myelopathy or radiculopathy TECHNIQUE: Noncontrast sagittal T1 spin echo and T2 fast echo, sagittal STIR, and T2 fast spin echo through the lumbar spine. In cases with scoliosis, additional coronal T2 fast spin echo may be performed. COMPARISON: [facility] Outside Film, MR, MR LUMBAR SPINE WITHOUT CONTRAST, 07/14/2021, 18:43. FINDINGS: Image quality: Excellent. Alignment and Curvature: No plain films are available for comparison, for numbering purposes. Thus, for the purposes of this examination, 5 lumbar type vertebral bodies will be presumed, as denoted on the montage panel. This should be confirmed and correlated with plain films, prior to any lumbar spinal intervention. 6 mm of anterolisthesis of L4 on L5. Bone Marrow: Marrow is of normal overall signal. No acute vertebral body compression fractures. Mild reactive signal throughout the endplates of the lumbar and lower thoracic spine. Spinal Cord: Conus medullaris terminates at the mid L2 level. Visualized cord demonstrates normal signal and size. Paraspinous Soft Tissues: No paravertebral masses. There is decreased, mild right greater than left hydronephrosis. T12-L1: Mild disc desiccation. No significant canal, or foraminal stenosis. No significant change. L1-L2: Mild disc desiccation. No significant canal, or foraminal stenosis. No significant change. L2-L3: Mild disc desiccation and diffuse disc bulge. Mild facet and ligamentum flavum hypertrophy. Mild epidural lipomatosis. Mild canal stenosis. No significant change. L3-L4: Mild disc desiccation and diffuse disc bulge. Mild facet and ligamentum flavum hypertrophy. Mild canal stenosis. Moderate bilateral foraminal stenosis. No significant change. L4-L5: Moderate disc desiccation. Mild diffuse disc bulge. Moderate bilateral facet hypertrophy. Mild ligamentum flavum hypertrophy. Mild epidural lipomatosis. Increased, severe canal stenosis. No change in moderate bilateral foraminal stenosis. L5-S1: Mild bilateral facet hypertrophy. No significant canal stenosis. Moderate subarticular foraminal stenosis bilaterally. No significant change. IMPRESSION: 1. Multilevel degenerative disc and facet disease, as well as ligamentum flavum hypertrophy and epidural lipomatosis. 2. Multilevel canal stenoses, worst at L4-L5 where there is severe canal stenosis. 3. Multilevel foraminal stenoses, worst at L4-L5 and L5-S1 where there are moderate foraminal stenoses. 4. 5 lumbar type vertebral bodies were presumed for the current report. Plain films of the lumbar spine are recommended for confirmation, prior to any lumbar spinal intervention. 5. Mild right greater than left hydronephrosis as described above. Dictated by: Alberto Medellin M.D. on 01/08/2023 at 8:30 Approved by: Alberto Medellin M.D. on 01/08/2023 at 8:37
== END ==
PROVIDERS: PCP Family Medicine; Referring Provider Physical Medicine & Rehabilitation; Visit Provider Physical Medicine & Rehabilitation
DX: M47.816 Spondylosis without myelopathy or radiculopathy, lumbar region (principal); M51.36 Other intervertebral disc degeneration, lumbar region; M48.061 Spinal stenosis, lumbar region without neurogenic claudication; M48.07 Spinal stenosis, lumbosacral region; N13.30 Unspecified hydronephrosis
CPT/HCPCS: 72148

== ENCOUNTER → 2023-06-25 12:10 | Outpatient (CLI) | payer MEDICARE, SELFPAY ==
[2022-05-30 15:45] VITALS: BMI 31.7
[2023-06-25 13:12] LABS: Add Manual Diff / Slide Review NO; Basophils Absolute Auto 100 /uL (0-100); Eosinophils Absolute Auto 100 /uL (0-450); Eosinophils Percent Auto 1.3 % (2-4); Hematocrit 36.7 % (36-46); Hemoglobin 12.4 g/dL (12.0-16.0); Lymphocytes Absolute Auto 900 /uL (1100-4500); Mean Corpuscular HGB Conc 33.8 % (30-36); Mean Corpuscular Hemoglobin 31.3 PG (26-34); Mean Corpuscular Volume 92.5 fL (80-100); Monocytes Absolute Auto 700 /uL (0-900); Monocytes Percent Auto 11.1 % (3-14); Neutrophils Absolute Auto 4700 /uL (1500-7000); Neutrophils Percent Auto 72.6 % (50-75); Platelet Count 275 X10^3/uL (150-400); Red Blood Cell Count 3.97 X10^6/uL (4.0-5.2); Red Cell Distribution Width 12.6 % (11.6-14.8); White Blood Cell Count 6.5 X10^3/uL (4.5-11.0)
[2023-06-25 13:30] LABS: Creatine Kinase 49 U/L (30-135); Estimated Glomerular Filt Rate > 60 mL/min (>60)
[2023-06-25 13:33] LABS: High Sensitivity CRP - Cardiac 8.7 mg/L (1.0-3.0)
[2023-06-25 13:39] LABS: Erythrocyte Sedimentation Rate 41 MM/HR (0-20)
== END ==
PROVIDERS: PCP Family Medicine; Referring Provider Internal Medicine Rheumatology; Visit Provider Internal Medicine Rheumatology
DX: M31.7 Microscopic polyangiitis (principal)
CPT/HCPCS: 36415; 82550; 82565; 85025; 85651; 86140

== ENCOUNTER → 2024-04-17 12:00 | Outpatient (CLI) | payer MEDICARE, SELFPAY ==
[2022-05-30 15:45] VITALS: BMI 31.7
[2024-04-17 13:44] LABS: Add Manual Diff / Slide Review NO; Basophils Absolute Auto 0 /uL (0-100); Basophils Percent Auto 0.8 % (0-2); Eosinophils Absolute Auto 100 /uL (0-450); Eosinophils Percent Auto 1.9 % (2-4); Hematocrit 36.7 % (36-46); Hemoglobin 12.2 g/dL (12.0-16.0); Lymphocytes Absolute Auto 1300 /uL (1100-4500); Mean Corpuscular HGB Conc 33.3 % (30-36); Mean Corpuscular Hemoglobin 32.4 PG (26-34); Mean Corpuscular Volume 97.2 fL (80-100); Monocytes Absolute Auto 600 /uL (0-900); Monocytes Percent Auto 10.2 % (3-14); Neutrophils Absolute Auto 4300 /uL (1500-7000); Neutrophils Percent Auto 67.1 % (50-75); Platelet Count 221 X10^3/uL (150-400); Red Blood Cell Count 3.77 X10^6/uL (4.0-5.2); Red Cell Distribution Width 14.1 % (11.6-14.8); White Blood Cell Count 6.4 X10^3/uL (4.5-11.0)
[2024-04-17 14:08] LABS: Erythrocyte Sedimentation Rate 9 MM/HR (0-20)
[2024-04-17 14:20] LABS: Alanine Aminotransferase 18 IU/L (<35); Albumin 3.8 g/dL (3.5-5.0); Albumin Globulin Ratio 1.5 (1.0-2.8); Alkaline Phosphatase 35 U/L (38-126); Aspartate Aminotransferase 23 IU/L (14-36); BUN Creatinine Ratio 21.1 (6-22); Bilirubin Total 0.8 mg/dL (0.2-1.3); Blood Urea Nitrogen 20 mg/dL (7-17); Calcium 8.9 mg/dL (8.4-10.2); Carbon Dioxide 29 mmol/L (22-32); Chloride 103 mmol/L (98-107); Creatine Kinase 33 U/L (30-135); Estimated Glomerular Filt Rate > 60 mL/min (>60); Globulin 2.5 g/dL (1.7-4.1); Glucose 131 mg/dL (80-110); HEMOLYSIS < 15 (0-50); Potassium 4.6 mmol/L (3.4-5.1); Sodium 137 mmol/L (137-145); Total Protein 6.3 g/dL (6.3-8.2)
[2024-04-17 14:26] LABS: High Sensitivity CRP - Cardiac 0.8 mg/L (1.0-3.0)
== END ==
PROVIDERS: PCP Family Medicine; Referring Provider Internal Medicine Rheumatology; Visit Provider Internal Medicine Rheumatology
DX: M31.7 Microscopic polyangiitis (principal); Z79.899 Other long term (current) drug therapy
CPT/HCPCS: 36415; 80053; 82550; 85025; 85651; 86140

== ENCOUNTER → 2024-06-25 13:16 | Outpatient (CLI) | payer MEDICARE, SELFPAY ==
[2022-05-30 15:45] VITALS: BMI 31.7
[2024-06-25 13:50] LABS: Add Manual Diff / Slide Review NO; Basophils Absolute Auto 0 /uL (0-100); Basophils Percent Auto 0.5 % (0-2); Eosinophils Absolute Auto 100 /uL (0-450); Eosinophils Percent Auto 0.8 % (2-4); Hematocrit 37.8 % (36-46); Hemoglobin 12.8 g/dL (12.0-16.0); Lymphocytes Absolute Auto 1200 /uL (1100-4500); Lymphocytes Percent Auto 16.3 % (25-40); Mean Corpuscular HGB Conc 33.9 % (30-36); Mean Corpuscular Hemoglobin 32.7 PG (26-34); Mean Corpuscular Volume 96.6 fL (80-100); Monocytes Absolute Auto 600 /uL (0-900); Monocytes Percent Auto 8.2 % (3-14); Neutrophils Absolute Auto 5600 /uL (1500-7000); Neutrophils Percent Auto 74.2 % (50-75); Platelet Count 227 X10^3/uL (150-400); Red Blood Cell Count 3.91 X10^6/uL (4.0-5.2); White Blood Cell Count 7.5 X10^3/uL (4.5-11.0)
[2024-06-25 15:41] LABS: Erythrocyte Sedimentation Rate 13 MM/HR (0-20)
[2024-06-25 22:01] LABS: Alanine Aminotransferase 16 IU/L (<35); Albumin Globulin Ratio 1.4 (1.0-2.8); Alkaline Phosphatase 45 U/L (38-126); Aspartate Aminotransferase 23 IU/L (14-36); BUN Creatinine Ratio 21.7 (6-22); Bilirubin Total 0.8 mg/dL (0.2-1.3); Blood Urea Nitrogen 23 mg/dL (7-17); C-Reactive Protein Quant < 0.5 mg/dL (<1.0); Calcium 9.1 mg/dL (8.4-10.2); Carbon Dioxide 29 mmol/L (22-32); Chloride 103 mmol/L (98-107); Creatine Kinase 50 U/L (30-135); Estimated Glomerular Filt Rate 55 mL/min (>60); Globulin 2.8 g/dL (1.7-4.1); Glucose 102 mg/dL (80-110); HEMOLYSIS < 15 (0-50); Potassium 4.6 mmol/L (3.4-5.1); Sodium 136 mmol/L (137-145); Total Protein 6.8 g/dL (6.3-8.2)
== END ==
PROVIDERS: PCP Family Medicine; Referring Provider Internal Medicine Rheumatology; Visit Provider Internal Medicine Rheumatology
DX: Z79.899 Other long term (current) drug therapy (principal); M31.7 Microscopic polyangiitis
CPT/HCPCS: 36415; 80053; 82550; 85025; 85651; 86140

== ENCOUNTER → 2025-03-31 11:40 | Outpatient (CLI) | payer MEDICARE, SELFPAY ==
[2022-05-30 15:45] VITALS: BMI 31.7
--- NOTE | 2025-03-31 | DI.RAD.S_ITS ---
PROCEDURE: XR LUMBAR SPINE 2-3V INDICATIONS: Encounter for other specified surgical aftercare TECHNIQUE: 3 views of the lumbar spine were acquired. COMPARISON: None. FINDINGS: Lumbar spine curvature and alignment: Normal. Bones: There are no osseous abnormalities. Disc spaces: L4-5 anterior/posterior fusion provided by interbody spacer, pedicle screws and short interbody struts appreciated. There is 4 mm of persistent L4 anterior subluxation. Moderate T10-11 , moderate T11-T12 , mild T12-L1 and L1-2 degenerative disc disease noted. Soft tissues: No soft tissue swelling, calcification or mass. IMPRESSION: L4-5 anterior/posterior fusion with slight residual L4 anterior subluxation vera degeneration Dictated by: Trent Centeno M.D. on 04/01/2025 at 11:39 Approved by: Trent Centeno M.D. on 04/01/2025 at 11:41
== END ==
LOC: RAD 11:43
PROVIDERS: PCP Family Medicine
DX: Z48.89 Encounter for other specified surgical aftercare (principal); M51.34 Other intervertebral disc degeneration, thoracic region; M51.369 Other intervertebral disc degeneration, lumbar region without mention of lumbar back pain or lower extremity pain; Z98.1 Arthrodesis status
CPT/HCPCS: 72100